=== PATIENT | male | born 1935 | race Two or more races ===

== ENCOUNTER 2019-01-25 09:47 | Emergency (ER) | payer OTHER ==
[~2019-01-25] VITALS: Ht 170.2 cm; Wt 65.0 kg
[~2019-01-25 09:47] MED LIST: ASPI-1073 PO; ATEN-42 PO; BRIM5DRO6 OP; CLOP75TA16 PO; GLYB5TAB7 PO; HYDR12.54 PO; LEVO5DRO15 OP; LISI10TA5 PO; METF-415 PO
[2019-01-25 10:59] LABS: BASOPHILS % 1.1 % (0.0-2.0); EOSINOPHILS % 2.2 % (0.0-5.0); HEMATOCRIT. 43.1 % (42.0-52.0); LYMPHOCYTES % 38.6 % (20.0-50.0); MEAN CORPUSCULAR HEMOGLOBIN 32.6 pg (28.0-32.0); MEAN CORPUSCULAR VOLUME 93.9 fL (80.0-94.0); MEAN PLATELET VOLUME 8.4 fl (7.4-10.4); MONOCYTES % 9.7 % (2.0-8.0); NEUTROPHILS % 48.4 % (40.0-76.0); PLATELET 200 x1000/uL (130-400); RED BLOOD CELL COUNT 4.59 mill/uL (4.7-6.1); RED CELL DISTRIBUTION WIDTH 12.9 % (11.6-14.6)
[2019-01-25 11:05] LABS: INR 1.1; PROTHROMBIN TIME 11.5 sec (9.6-11.0)
[2019-01-25 11:07] LABS: CHLORIDE 100 mEq/L (98-107)
[2019-01-25] MEDS ORDERED: ASPIRIN 325MG EC TABLET PO NR (12:00)
[2019-01-25 14:05] VITALS: BP 116/64
[2019-01-25 14:06] LABS: CLARITY URINE CLEAR (CLEAR); COLOR URINE YELLOW (YELLOW); KETONES URINE 1+ (NEGATIVE); LEUKOCYTE ESTERASE URINE NEGATIVE (NEGATIVE); NITRITE URINE NEGATIVE (NEGATIVE); OCCULT BLOOD URINE NEGATIVE (NEGATIVE); PROTEIN URINE NEGATIVE (NEGATIVE); SPECIFIC GRAVITY URINE 1.022 (1.005-1.030)
== END 2019-01-25 14:28 | disposition short-term general hospital (02) ==
LOC: ER 09:47 → CANBEDREQ 16:24
DX: I63.9 Cerebral infarction, unspecified (principal); E11.9 Type 2 diabetes mellitus without complications; I10 Essential (primary) hypertension; Z79.899 Other long term (current) drug therapy; Z79.82 Long term (current) use of aspirin
CPT/HCPCS: 36415; 71045; 83605; 83880; 84484; 93005; 99285

== ENCOUNTER 2020-05-22 11:14 | Emergency (ER) | payer OTHER ==
[~2020-05-22] VITALS: Ht 170.2 cm; Wt 72.0 kg
[~2020-05-22 11:14] MED LIST changes: -CLOP75TA16 PO; +CLOP75TA4 PO
[2020-05-22] MEDS ORDERED: SODIUM CHLORIDE 0.9% 1,000 ML IV ONE (11:51)
[2020-05-22 12:33] LABS: BASOPHILS % 0.9 % (0.0-2.0); EOSINOPHILS % 3.1 % (0.0-5.0); HEMATOCRIT. 40.1 % (42.0-52.0); HEMOGLOBIN. 13.9 g/dL (14.0-18.0); LYMPHOCYTES % 32.7 % (20.0-50.0); MEAN CORPUSCULAR HEMOGLOBIN 32.4 pg (28.0-32.0); MEAN CORPUSCULAR VOLUME 93.3 fL (80.0-94.0); MEAN PLATELET VOLUME 9.2 fl (7.4-10.4); MONOCYTES % 7.6 % (2.0-8.0); NEUTROPHILS % 55.7 % (40.0-76.0); PLATELET 211 x1000/uL (130-400); RED CELL DISTRIBUTION WIDTH 12.9 % (11.6-14.6)
[2020-05-22 12:41] LABS: CHLORIDE 101 mEq/L (98-107)
[2020-05-22 12:43] LABS: INR 1.1; PROTHROMBIN TIME 11.8 sec (9.6-11.0)
[2020-05-22 12:45] LABS: ETHANOL BLOOD < 10 mg/dL
[2020-05-22] MEDS ORDERED: ASPIRIN 325MG EC TABLET PO ONE (14:45)
[2020-05-22] MEDS ORDERED: CLOPIDOGREL 75MG TABLET PO ONE (14:45)
[2020-05-22] MEDS ORDERED: DEXTROSE 50% WATER 50ML SYRINGE IV ONE (19:30)
[2020-05-22 19:32] VITALS: BP 155/60
== END 2020-05-22 18:00 | disposition short-term general hospital (02) ==
LOC: ER 11:14
DX: G93.40 Encephalopathy, unspecified (principal); E11.9 Type 2 diabetes mellitus without complications; I10 Essential (primary) hypertension; I69.351 Hemiplegia and hemiparesis following cerebral infarction affecting right dominant side; Z79.82 Long term (current) use of aspirin
CPT/HCPCS: 36415; 70450; 80053; 80320; 82962; 84484; 85025; 85610; 93005; 96361; 96374; 99285; J7030; G0480

== ENCOUNTER 2020-06-17 17:07 | Inpatient (IN) | payer OTHER ==
[~2020-06-17] VITALS: Ht 172.7 cm; Wt 60.8 kg
[2020-06-17] MEDS ORDERED: SODIUM CHLORIDE 0.9% 1000ML BAG (SEPSIS BOLUS) IV ONE (17:30)
[2020-06-17 18:00] LABS: BG BASE EXCESS -4.1 mmol/L (-2.0-2.0); BG CARBOXYHEMOGLOBIN 0.1 % (0.5-1.5); BG DEOXYHEMOGLOBIN 3.4 % (0.0-5.0); BG FRACTION INSPIRED OXYGEN 21; BG HCO3 ACT 18.2 mmol/L (22.0-26.0); BG METHEMOGLOBIN 0.1 % (0.0-1.5); BG OXYGEN SATURATION 96.6 % (92.0-98.5); BG OXYHEMOGLOBIN 96.4 % (94.0-97.0); BG PCO2 26.9 mmHg (35.0-45.0); BG PH 7.448 (7.350-7.450); BG PO2 87.3 mmHg (75.0-100.0); BG TOTAL HEMOGLOBIN 14.9 g/dL (12.0-18.0); BG VENT MODE ROOM AIR
[2020-06-17 18:22] LABS: BASOPHILS % 0.3 % (0.0-2.0); EOSINOPHILS % 0.1 % (0.0-5.0); HEMATOCRIT. 43.3 % (42.0-52.0); HEMOGLOBIN. 14.5 g/dL (14.0-18.0); LYMPHOCYTES % 10.1 % (20.0-50.0); MEAN CORPUSCULAR HEMOGLOBIN 31.3 pg (28.0-32.0); MEAN CORPUSCULAR VOLUME 93.5 fL (80.0-94.0); MEAN PLATELET VOLUME 9.1 fl (7.4-10.4); MONOCYTES % 6.9 % (2.0-8.0); NEUTROPHILS % 82.6 % (40.0-76.0); PLATELET 318 x1000/uL (130-400); RED BLOOD CELL COUNT 4.63 mill/uL (4.7-6.1); RED CELL DISTRIBUTION WIDTH 13.2 % (11.6-14.6)
[2020-06-17 18:24] LABS: CHLORIDE 98 mEq/L (98-107)
[2020-06-17 18:26] LABS: INR 1.1
[2020-06-17 18:35] LABS: CREATINE KINASE 53 IU/L (39-308)
[2020-06-17] MEDS ORDERED: ONDANSETRON HCL 4MG/2ML INJ IV ONE (19:30)
[2020-06-17] MEDS ORDERED: ASPIRIN 300MG SUPP PR NR (19:45)
[2020-06-17] MEDS ORDERED: CEFTRIAXONE 1 G PREMIX 50 ML IV ONE (20:00)
[2020-06-17 22:12] LABS: CLARITY URINE CLOUDY (CLEAR); COLOR URINE RED (YELLOW); KETONES URINE NEGATIVE (NEGATIVE); LEUKOCYTE ESTERASE URINE 1+ (NEGATIVE); NITRITE URINE NEGATIVE (NEGATIVE); OCCULT BLOOD URINE 3+ (NEGATIVE); PROTEIN URINE TRACE (NEGATIVE); UROBILINOGEN URINE 0.2 E.U./dL (0.2-1.0)
[2020-06-17] MEDS ORDERED: IOHEXOL-350 100 ML BOTTLE ONE (22:16)
[2020-06-18] VITALS (58 sets, daily range): BP systolic 87–140; BP diastolic 40–117
[2020-06-18] MEDS ORDERED: CEFTRIAXONE 1 G PREMIX 50 ML IV SCH
[2020-06-18] MEDS ORDERED: ACETAMINOPHEN 325MG TABLET PO PRN ×2
[2020-06-18] MEDS ORDERED: DEXTROSE 50% WATER 50ML SYRINGE IV PRN
[2020-06-18] MEDS ORDERED: ONDANSETRON HCL 4MG/2ML INJ IV PRN
[2020-06-18] MEDS ORDERED: IPRATROPIUM/ALBUTEROL 0.5-3(2.5)MG/3ML NEB NEB PRN
[2020-06-18] MEDS ORDERED: CLONIDINE 0.1MG TABLET PO PRN
[2020-06-18] MEDS ORDERED: DIPHENHYDRAMINE 50MG/ML VIAL IV PRN
[2020-06-18] MEDS: SODIUM CHLORIDE 0.9% 1,000 ML IV SCH ×3 (01:00→21:00)
[2020-06-18] MEDS ORDERED: SODIUM CHLORIDE 0.9% 500 ML IV NR (02:15)
[2020-06-18] MEDS ORDERED: NOREPINEPHRINE 8MG/250ML PMX 250ML IV PRN (05:00)
[2020-06-18] MEDS: BLOOD SUGAR DIAGNOSTIC STRIP TEST SCH ×4 (06:31→21:00)
[2020-06-18] MEDS: INSULIN LISPRO 100 UNITS/ML SUBCUT SCH ×4 (06:33→22:26)
[2020-06-18] MEDS ORDERED: NOREPINEPHRINE 8 MG in DEXTROSE 5% WATER 250 ML IV PRN (09:00)
[2020-06-18] MEDS ORDERED: ENOXAPARIN 30MG/0.3ML SYR SUBCUT SCH (09:00)
[2020-06-18] MEDS: FAMOTIDINE 20MG/2ML VIAL IV SCH (09:01)
[2020-06-18] MEDS ORDERED: ROSU5TAB MT (11:19)
[2020-06-18] MEDS ORDERED: BRIM5DRO6 LEFTEYE (11:19)
[2020-06-18] MEDS ORDERED: DORZ10DR8 LEFTEYE (11:19)
[2020-06-18] MEDS ORDERED: ACAR50TA2 PO (11:19)
[2020-06-18] MEDS ORDERED: NOREPINEPHRINE 8MG/250ML PMX 250 ML IV PRN (12:00)
[2020-06-18 12:43] LABS: HEMATOCRIT. 38.9 % (42.0-52.0); HEMOGLOBIN. 12.9 g/dL (14.0-18.0); MEAN CORPUSCULAR HEMOGLOBIN 31.1 pg (28.0-32.0); MEAN CORPUSCULAR VOLUME 93.7 fL (80.0-94.0); PLATELET 240 x1000/uL (130-400); RED BLOOD CELL COUNT 4.15 mill/uL (4.7-6.1); RED CELL DISTRIBUTION WIDTH 13.4 % (11.6-14.6)
[2020-06-18 13:12] LABS: PHOSPHORUS 2.5 mg/dL (2.5-4.9)
[2020-06-18 13:21] LABS: PLATELET ESTIMATE NORMAL
[2020-06-18] MEDS: AMPICILLIN 2,000 MG in SODIUM CHLORIDE 0.9% 100 ML IV SCH ×2 (15:43→22:29)
[2020-06-18] MEDS ORDERED: MEDICATION NOT ON FORMULARY EA (Brimonidine Tartrate 1 DROP) LEFTEYE SCH (17:00)
[2020-06-18] MEDS: CEFTAZIDIME PENTAHYDRATE 1 G in DEXTROSE 5% WATER 50 ML IV SCH (17:27)
[2020-06-18] MEDS ORDERED: MAGNESIUM 2 G PREMIX 50 ML IV NR (18:00)
[2020-06-18] MEDS: BRIMONIDINE 0.2% OPHTH DROPS 5ML LEFTEYE SCH (18:07)
[2020-06-18] MEDS: DORZOLAMIDE 2% OPHTH 10 ML BOTTLE LEFTEYE SCH (18:07)
[2020-06-18] MEDS ORDERED: CEFTRIAXONE 1,000 MG in DEXTROSE 5% WATER 50 ML IV SCH (21:00)
[2020-06-19] VITALS (68 sets, daily range): BP systolic 83–128; BP diastolic 31–73
[2020-06-19] MEDS: CEFTAZIDIME PENTAHYDRATE 1 G in DEXTROSE 5% WATER 50 ML IV SCH ×2 (03:51→15:24)
[2020-06-19 05:39] LABS: HEMATOCRIT. 36.3 % (42.0-52.0); HEMOGLOBIN. 12.3 g/dL (14.0-18.0); MEAN CORPUSCULAR HEMOGLOBIN 32.1 pg (28.0-32.0); MEAN CORPUSCULAR VOLUME 94.5 fL (80.0-94.0); MEAN PLATELET VOLUME 9.8 fl (7.4-10.4); PLATELET 234 x1000/uL (130-400); RED BLOOD CELL COUNT 3.84 mill/uL (4.7-6.1); RED CELL DISTRIBUTION WIDTH 13.2 % (11.6-14.6)
[2020-06-19 05:53] LABS: PHOSPHORUS 2.7 mg/dL (2.5-4.9)
[2020-06-19] MEDS: AMPICILLIN 2,000 MG in SODIUM CHLORIDE 0.9% 100 ML IV SCH ×2 (06:50→15:24)
[2020-06-19] MEDS: BLOOD SUGAR DIAGNOSTIC STRIP TEST SCH ×4 (06:50→17:15)
[2020-06-19] MEDS: INSULIN LISPRO 100 UNITS/ML SUBCUT SCH ×3 (06:51→17:03)
[2020-06-19] MEDS: SODIUM CHLORIDE 0.9% 1,000 ML IV SCH ×2 (06:52→17:00)
[2020-06-19] MEDS: DORZOLAMIDE 2% OPHTH 10 ML BOTTLE LEFTEYE SCH ×2 (09:53→17:20)
[2020-06-19] MEDS: BRIMONIDINE 0.2% OPHTH DROPS 5ML LEFTEYE SCH ×2 (09:53→17:20)
[2020-06-19] MEDS: FAMOTIDINE 20MG/2ML VIAL IV SCH (09:53)
[2020-06-19 10:56] LABS: PLATELET ESTIMATE NORMAL
[2020-06-20 19:06] LABS: ANTI-NUCLEAR ANTIBODIES DIRECT Negative (Negative)
[2020-06-22 17:09] LABS: ANTI-MYELOPEROXIDASE AB < 9.0 U/mL (0.0-9.0); ANTI-PROTEINASE 3 ABS < 3.5 U/mL (0.0-3.5)
== END 2020-06-19 21:35 | disposition short-term general hospital (02) | DRG 871 ==
LOC: ER 17:07 → MICUSO 22:35 → EDBEDREQ 22:51 → EDBEDREQSVC 22:51 → EDBEDREQTM 22:51 → EDBEDREQ 22:54 → CVICU 23:48 → MICUSO 06-18 01:51 → ENRESERV 06-18 07:24 → MICUSO 06-18 07:25 → 8WST 06-19 16:56
PROVIDERS: ADMIT Internal Medicine; ATTEND Internal Medicine
DX: A41.9 Sepsis, unspecified organism (principal); G93.41 Metabolic encephalopathy; J96.00 Acute respiratory failure, unspecified whether with hypoxia or hypercapnia; N17.0 Acute kidney failure with tubular necrosis; R65.21 Severe sepsis with septic shock; N39.0 Urinary tract infection, site not specified; E87.1 Hypo-osmolality and hyponatremia; E87.4 Mixed disorder of acid-base balance; D64.9 Anemia, unspecified; E11.65 Type 2 diabetes mellitus with hyperglycemia; E83.42 Hypomagnesemia; H40.9 Unspecified glaucoma; N28.1 Cyst of kidney, acquired; I10 Essential (primary) hypertension; I95.9 Hypotension, unspecified; N32.3 Diverticulum of bladder; R31.9 Hematuria, unspecified; Z20.828 Contact with and (suspected) exposure to other viral communicable diseases; Z85.46 Personal history of malignant neoplasm of prostate; Z86.73 Personal history of transient ischemic attack (TIA), and cerebral infarction without residual deficits; Z87.891 Personal history of nicotine dependence; Z90.49 Acquired absence of other specified parts of digestive tract; Z90.79 Acquired absence of other genital organ(s)
CPT/HCPCS: 36415; 36600; 70496; 70498; 71045; 76770; 80048; 80053; 81003; 82140; 82375; 82550; 82805; 82962; 83036; 83520; 83605; 83721; 83735; 83880; 83930; 83935; 84100; 84145; 84484; 85025; 86038; 86160; 86256; 87635; 93970; 93971; 99291; J0290; J0696; J0713; J1650; J1815; J2405; J3475; J3490; J7030; J7050; J7060; Q9967